=== PATIENT | female | born 1940 | race Caucasian/White ===

== ENCOUNTER 2023-10-22 00:50 | Observation (INO) | payer MEDICARE, OTHER, SELFPAY ==
[2023-10-22 01:50] LABS: #Eosinphils 0.1 10x3/uL (0.0-0.5); #Monocytes 0.3 10x3/uL (0.0-1.1); %Basophils 0.5 % (0.0-2.0); %Eosinophils 2.5 % (0.0-6.0); %Lymphocytes 45.9 % (18.0-47.0); %Monocytes 6.1 % (0.0-10.0); %Neutrophils 44.5 % (40.0-75.0); Hematocrit 30.5 % (34.9-44.5); Hemoglobin 10.1 g/dL (12.0-15.5); Mean Corpuscular HGB CONC 33.1 g/dL (32.0-36.0); Mean Corpuscular Hemoglobin 31.3 pg (27.0-33.0); Mean Corpuscular Volume 94.4 fl (81.6-98.3); Mean Platelet Volume 10.2 fl (7.4-10.4); Platelet Count 158 10x3/uL (150-450); RBC Distribution Width 12.8 % (11.5-14.5); Red Blood Cell (RBC) Count 3.23 10x6/uL (3.90-5.03); White Blood Cell (WBC) Count 4.4 10x3/uL (3.5-10.5)
[2023-10-22 02:04] LABS: ALT (SGPT) 25 U/L (8-55); AST (SGOT) 21 U/L (5-34); Albumin 3.6 g/dL (3.4-4.8); Alkaline Phosphatase 69 U/L (40-110); Anion Gap 14 mmol/L (10-20); BUN (Urea Nitrogen) 16 mg/dL (9.8-20.1); Bilirubin, Total 0.3 mg/dL (0.2-1.2); Calc. Creatinine Clearance 0 mL/min (70-130); Calcium 8.8 mg/dL (7.8-10.44); Carbon Dioxide 18 mmol/L (23-31); Chloride 111 mmol/L (98-107); Estimated GFR 50; Globulin 2.5 g/dL (2.4-3.5); Glucose 206 mg/dL (83-110); Protein, Total 6.1 g/dL (5.8-8.1); Sodium 139 mmol/L (136-145)
[2023-10-22 02:10] LABS: Troponin I 0.019 ng/mL (< 0.028)
[2023-10-22 05:25] LABS: Troponin I 0.042 ng/mL (< 0.028)
[2023-10-22] MEDS ORDERED: Nitroglycerin 2% Ointment 1 INCH/1 GM Packet ONE (05:35)
[2023-10-22] MEDS ORDERED: Calcium Carbonate 500 MG ChewTAB PO PRN (05:56)
[2023-10-22] MEDS ORDERED: Senokot S 8.6-50 MG TAB PO PRN (05:56)
[2023-10-22] MEDS ORDERED: Acetaminophen 325 MG TAB PO PRN (05:56)
[2023-10-22] MEDS ORDERED: Ondansetron PF 4 MG/2 ML Vial IVP PRN (05:56)
[2023-10-22] MEDS ORDERED: Nitroglycerin 0.4 MG TAB (25 Tab Bottle) SL PRN (06:01)
[2023-10-22 06:47] VITALS: BMI 32.3
[2023-10-22] MEDS ORDERED: Icosapent Ethyl 1 GM CAPSULE PO SCH (08:00)
[2023-10-22] MEDS ORDERED: FLU VACC QS2023(65UP)/MF59C/PF 60 MCG/0.5 ML SYRINGE IM ONE (08:15)
[2023-10-22] MEDS ORDERED: Clopidogrel Bisulfate 75 MG TAB PO SCH (09:00)
[2023-10-22] MEDS ORDERED: Multivitamin W/ Minerals 1 TAB PO SCH (09:00)
[2023-10-22] MEDS ORDERED: Cyanocobalamin (Vitamin B-12) 1,000 MCG TAB PO SCH (09:00)
[2023-10-22] MEDS ORDERED: Benzonatate 100 MG CAP PO SCH (09:00)
[2023-10-22] MEDS ORDERED: Ascorbic Acid 500 mg Chewable Tablet PO SCH (09:00)
[2023-10-22] MEDS ORDERED: Ranolazine 500 MG ER.TAB PO SCH (09:00)
[2023-10-22] MEDS ORDERED: Isosorbide Mononitrate 30 MG ER.TAB PO SCH (09:00)
[2023-10-22 09:17] LABS: Troponin I 0.067 ng/mL (< 0.028)
[2023-10-22 13:08] VITALS: BP 169/67; TEMP 97.9
[2023-10-22 13:25] LABS: Hemoglobin A1c 9.1 % (4.0-6.0)
[2023-10-22] MEDS ORDERED: Rosuvastatin 20 MG TAB PO SCH (21:00)
[2023-10-23] MEDS ORDERED: Calcium Carbonate 500 MG ChewTAB PO SCH (09:00)
[2023-10-23] MEDS ORDERED: B6 PO SCH (09:00)
[2023-10-23] MEDS ORDERED: Aspirin 81 mg Enteric Coated Tablet PO SCH (09:00)
[2023-10-23] MEDS ORDERED: Multivitamin W/ Minerals 1 TAB PO SCH (09:00)
[2023-10-23] MEDS ORDERED: Ascorbic Acid 500 mg Chewable Tablet PO SCH (09:00)
[2023-10-23] MEDS ORDERED: VIT B12 PO SCH (09:00)
[2023-10-23] MEDS ORDERED: [UNRECOGNIZED DRUG - OTHER] PO SCH (09:00)
[2023-10-23] MEDS ORDERED: FOLIC ACID PO SCH (09:00)
== END 2023-10-22 15:34 | disposition home or self-care (01) ==
LOC: CSHERS 00:50 → CSHTELE 06:42
PROVIDERS: ADMIT Student in an Organized Health Care Education/Training Program; ATTEND Student in an Organized Health Care Education/Training Program
DX: R00.0 Tachycardia, unspecified (principal); R07.9 Chest pain, unspecified; I25.10 Atherosclerotic heart disease of native coronary artery without angina pectoris; I12.9 Hypertensive chronic kidney disease with stage 1 through stage 4 chronic kidney disease, or unspecified chronic kidney disease; N18.30 Chronic kidney disease, stage 3 unspecified; D63.1 Anemia in chronic kidney disease; I48.0 Paroxysmal atrial fibrillation; E78.5 Hyperlipidemia, unspecified; R77.8 Other specified abnormalities of plasma proteins; Z95.818 Presence of other cardiac implants and grafts; Z88.5 Allergy status to narcotic agent; Z88.8 Allergy status to other drugs, medicaments and biological substances; Z95.1 Presence of aortocoronary bypass graft; Z79.82 Long term (current) use of aspirin; Z79.899 Other long term (current) drug therapy
CPT/HCPCS: 71045; 83036; 83880; 84484 ×2; 93005; 93306; 99285; G0378 ×2; 36415; 80053; 84443; 85025; 93010

== ENCOUNTER 2024-09-15 03:46 | Inpatient (IN) | payer MEDICARE ==
[2024-09-15 04:16] LABS: #Basophils 0.02 10x3/uL (0.0-0.2); #Eosinophils 0.18 10x3/uL (0.0-0.5); #Neutrophils 2.99 10x3/uL (1.5-8.4); %Basophils 0.3 % (0.0-2.0); %Eosinophils 2.8 % (0.0-6.0); %Lymphocytes 42.1 % (18.0-47.0); %Monocytes 7.8 % (0.0-10.0); %Neutrophils 46.5 % (40.0-75.0); Hematocrit 31.2 % (34.9-44.5); Hemoglobin 10.3 g/dL (12.0-15.5); Mean Corpuscular Hemoglobin 30.8 pg (27.0-33.0); Mean Corpuscular Volume 93.4 fL (81.6-98.3); Mean Platelet Volume 10.2 fL (7.4-10.4); Platelet Count 232 10x3/uL (150-450); Red Blood Cell (RBC) Count 3.34 10x6/uL (3.90-5.03); White Blood Cell (WBC) Count 6.4 10x3/uL (3.5-10.5)
[2024-09-15 04:34] LABS: Troponin I 0.017 ng/mL (< 0.028)
[2024-09-15 05:02] LABS: ALT (SGPT) 15 U/L (8-55); AST (SGOT) 16 U/L (5-34); Albumin 3.6 g/dL (3.4-4.8); Alkaline Phosphatase 67 U/L (40-110); Anion Gap 16 mmol/L (10-20); BUN (Urea Nitrogen) 28 mg/dL (9.8-20.1); Bilirubin, Total 0.4 mg/dL (0.2-1.2); Calc. Creatinine Clearance 0 mL/min (70-130); Calcium 9.6 mg/dL (7.8-10.44); Carbon Dioxide 18 mmol/L (23-31); Chloride 107 mmol/L (98-107); Estimated GFR 36; Globulin 3.2 g/dL (2.4-3.5); Glucose 138 mg/dL (83-110); Magnesium 1.7 mg/dL (1.6-2.6); Potassium 4.4 mmol/L (3.5-5.1); Protein, Total 6.8 g/dL (5.8-8.1); Sodium 137 mmol/L (136-145)
[2024-09-15] MEDS ORDERED: Calcium Carbonate 500 MG ChewTAB PO PRN (05:51)
[2024-09-15] MEDS ORDERED: Ondansetron PF 4 MG/2 ML Vial IVP PRN (05:51)
[2024-09-15] MEDS ORDERED: Senokot S 8.6-50 MG TAB PO PRN (05:51)
[2024-09-15] MEDS ORDERED: Dextrose 5% in Water 1,000 ML IV PRN (06:00)
[2024-09-15] MEDS ORDERED: Dextrose 50% Abboject 50 ML SYRINGE SLOW IVP PRN (06:00)
[2024-09-15] MEDS ORDERED: Glucagon 1 MG/ML KIT IM PRN (06:00)
[2024-09-15] MEDS ORDERED: Insulin Lispro 100 UNIT/ML 10 ML VIAL SC PRN (06:00)
[2024-09-15] MEDS ORDERED: Atropine Sulfate 1 mg/10 ml Syringe IVP PRN (06:01)
[2024-09-15 08:19] LABS: Magnesium 1.7 mg/dL (1.6-2.6)
[2024-09-15 08:25] LABS: Troponin I Less than 0.010 ng/mL (< 0.028)
[2024-09-15 09:30] VITALS: BMI 29.5
[2024-09-15] MEDS: Sodium Chloride 0.9% 500 ML IV SCH (09:48)
[2024-09-15] MEDS: Ascorbic Acid 500 mg Chewable Tablet PO SCH (09:48)
[2024-09-15] MEDS: Icosapent Ethyl 1 GM CAPSULE PO SCH (09:49)
[2024-09-15] MEDS: Aspirin 81 mg Enteric Coated Tablet PO SCH (09:49)
[2024-09-15] MEDS: Calcium Carbonate 500 MG ChewTAB PO SCH (09:49)
[2024-09-15] MEDS: Isosorbide Mononitrate 30 MG ER.TAB PO SCH (09:51)
[2024-09-15] MEDS: Multivit, Therapeutic 1 TAB PO SCH (09:51)
[2024-09-15] MEDS: Multivitamin w/Zinc Stress 1 TAB PO SCH (09:51)
[2024-09-15] MEDS: Pantoprazole DR 40 MG TAB PO SCH (09:51)
[2024-09-15] MEDS ORDERED: Non-Formulary Medication 1 EACH (Evolocumab [Repatha Syringe] 140 MG/ML Syringe) SCH (10:30)
[2024-09-15] MEDS ORDERED: Magnesium Sulfate 4 GM in Sodium Chloride 0.9% 250 ML 250 ML IVPB SCH (10:30)
[2024-09-15] MEDS: Magnesium 2 GM/50 ML(in water) 2 GM in Premix 1 BAG IVPB SCH (11:29)
[2024-09-15] MEDS: Rosuvastatin 20 MG TAB PO SCH (20:16)
[2024-09-15] MEDS: Ranolazine ER 500 MG TAB PO SCH (20:16)
[2024-09-15] MEDS ORDERED: Enoxaparin 40 MG (0.4 mL) SYRINGE SC SCH (21:00)
[2024-09-15] MEDS: Acetaminophen 325 MG TAB PO PRN (23:57)
[2024-09-16 03:53] LABS: Anion Gap 13 mmol/L (10-20); BUN (Urea Nitrogen) 25 mg/dL (9.8-20.1); Calc. Creatinine Clearance 43 mL/min (70-130); Calcium 8.6 mg/dL (7.8-10.44); Carbon Dioxide 22 mmol/L (23-31); Chloride 112 mmol/L (98-107); Estimated GFR 41; Glucose 133 mg/dL (83-110); Potassium 4.8 mmol/L (3.5-5.1); Sodium 142 mmol/L (136-145)
[2024-09-16 08:55] LABS: Hematocrit 30.7 % (34.9-44.5); Hemoglobin 9.8 g/dL (12.0-15.5); Mean Corpuscular HGB CONC 31.9 g/dL (32.0-36.0); Mean Corpuscular Hemoglobin 30.7 pg (27.0-33.0); Mean Corpuscular Volume 96.2 fL (81.6-98.3); Mean Platelet Volume 10.3 fL (7.4-10.4); Platelet Count 210 10x3/uL (150-450); RBC Distribution Width 13.2 % (11.5-14.5); Red Blood Cell (RBC) Count 3.19 10x6/uL (3.90-5.03)
[2024-09-16 09:04] LABS: PTT 22.5 sec (22.0-33.0); Prothrombin Time 10.9 sec (9.5-12.1)
[2024-09-16] MEDS ORDERED: Gentamicin 80 MG/2 ML VIAL ONE (09:13)
[2024-09-16] MEDS ORDERED: CEFAZOLIN 1 GM VIAL ONE (09:13)
[2024-09-16] MEDS ORDERED: Lidocaine 1% (PF) 30 ML VIAL ONE (09:13)
[2024-09-16] MEDS ORDERED: Iopamidol 370 76% 100 ML VIAL ONE (09:21)
[2024-09-16] MEDS ORDERED: fentaNYL 50 mcg/mL 1 mL Vial ONE ×2 (10:05→11:04)
[2024-09-16] MEDS ORDERED: Midazolam HCl 2 mg/2 ml Vial ONE (10:05)
[2024-09-16 10:50] VITALS: BMI 29.5
[2024-09-16 11:44] VITALS: TEMP 98.1
[2024-09-16 16:10] VITALS: BP 158/62
[2024-09-17] MEDS ORDERED: Clopidogrel Bisulfate 75 MG TAB PO SCH (09:00)
== END 2024-09-16 16:41 | disposition home or self-care (01) | DRG 243 ==
LOC: CSHERS 03:46 → CSHTELE 08:32
PROVIDERS: ADMIT Student in an Organized Health Care Education/Training Program; ATTEND Internal Medicine
PROC: 0JH606Z Insertion of Pacemaker, Dual Chamber into Chest Subcutaneous Tissue and Fascia, Open Approach (ICD-10-PCS; principal; 2024-09-16)
PROC: 02H63JZ Insertion of Pacemaker Lead into Right Atrium, Percutaneous Approach (ICD-10-PCS; 2024-09-16)
PROC: 02HK3JZ Insertion of Pacemaker Lead into Right Ventricle, Percutaneous Approach (ICD-10-PCS; 2024-09-16)
PROC: B5171ZZ Fluoroscopy of Left Subclavian Vein using Low Osmolar Contrast (ICD-10-PCS; 2024-09-16)
DX: I48.0 Paroxysmal atrial fibrillation (principal); N17.9 Acute kidney failure, unspecified; I25.10 Atherosclerotic heart disease of native coronary artery without angina pectoris; E78.5 Hyperlipidemia, unspecified; E11.51 Type 2 diabetes mellitus with diabetic peripheral angiopathy without gangrene; N18.30 Chronic kidney disease, stage 3 unspecified; E11.22 Type 2 diabetes mellitus with diabetic chronic kidney disease; I12.9 Hypertensive chronic kidney disease with stage 1 through stage 4 chronic kidney disease, or unspecified chronic kidney disease; I49.5 Sick sinus syndrome; Z79.899 Other long term (current) drug therapy; Z95.5 Presence of coronary angioplasty implant and graft; Z79.01 Long term (current) use of anticoagulants; Z95.1 Presence of aortocoronary bypass graft; Z82.49 Family history of ischemic heart disease and other diseases of the circulatory system
CPT/HCPCS: 33208; 36415; 36416; 71045; 80048; 80053; 83735; 83880; 84439; 84443; 84484; 85025; 85027; 85610; 85730; 93005; 93010; 96360; 99152; 99153; C1785; C1898; J0690; J1580; J2250; J3010; J3475; Q9967